=== PATIENT | male | born 1995 | race Hispanic/Latino ===

== ENCOUNTER 2018-08-10 09:52 | Emergency (ER) | payer OTHER | END 2018-08-10 10:43 | disposition home or self-care (01) | LOC: EDH 09:52 | DX: S93.692A Other sprain of left foot, initial encounter (principal); J45.909 Unspecified asthma, uncomplicated; X58.XXXA Exposure to other specified factors, initial encounter; Y93.89 Activity, other specified; Y92.89 Other specified places as the place of occurrence of the external cause; Y99.8 Other external cause status | CPT/HCPCS: 73630 ==

== ENCOUNTER 2020-01-16 10:13 | Emergency (ER) | payer SELFPAY ==
[2020-01-16] MEDS ORDERED: MECLIZINE HCL 25 MG TABLET ONE (11:08)
[2020-01-16 11:26] LABS: EOSINOPHILS % (AUTO) 9.1 % (0.0-8.0); HEMATOCRIT 44.4 % (42-54); LYMPHOCYTES % (AUTO) 25.9 % (21.0-51.0); MEAN CORPUSCULAR HEMOGLOBIN 30.2 pg (27.0-33.0); MEAN CORPUSCULAR HGB CONC 34.9 g/dL (32.0-36.0); MEAN CORPUSCULAR VOLUME 86.5 fL (79-99); MONOCYTES % (AUTO) 8.8 % (3.0-13.0); NEUTROPHILS % (AUTO) 54.9 % (40.0-77.0); PLATELET COUNT (AUTO) 260 K/uL (130-400); RED BLOOD CELL COUNT(AUTO) 5.13 MIL/uL (4.50-6.20); RED CELL DISTRIBUTION WIDTH 12.2 % (11.0-15.5); WHITE BLOOD COUNT (AUTO) 7.1 K/uL (4.8-10.8)
[2020-01-16 11:29] LABS: CREATININE 0.8 mg/dL (0.5-1.5); POTASSIUM 3.7 mmol/L (3.5-5.1)
== END 2020-01-16 12:11 | disposition home or self-care (01) ==
LOC: EDH 10:13
DX: R42 Dizziness and giddiness (principal); J45.909 Unspecified asthma, uncomplicated
CPT/HCPCS: 36415; 80048; 85025; 93005

== ENCOUNTER 2022-08-12 15:35 | Emergency (ER) | payer OTHER ==
[~2022-08-12] VITALS: Ht 180.3 cm; Wt 112.5 kg
[2022-08-12 16:28] LABS: BASOPHILS % (AUTO) 0.8 % (0.0-5.0); EOSINOPHILS % (AUTO) 3.2 % (0.0-8.0); HEMATOCRIT 43.8 % (42-54); LYMPHOCYTES % (AUTO) 17.6 % (21.0-51.0); MEAN CORPUSCULAR HEMOGLOBIN 33.8 pg (27.0-33.0); MEAN CORPUSCULAR HGB CONC 36.1 g/dL (32.0-36.0); MEAN CORPUSCULAR VOLUME 93.8 fL (79-99); MONOCYTES % (AUTO) 11.3 % (3.0-13.0); NEUTROPHILS % (AUTO) 66.6 % (40.0-77.0); PLATELET COUNT (AUTO) 240 K/uL (130-400); RED BLOOD CELL COUNT(AUTO) 4.67 MIL/uL (4.50-6.20); RED CELL DISTRIBUTION WIDTH 14.1 % (11.0-15.5); WHITE BLOOD COUNT (AUTO) 6.6 K/uL (4.8-10.8)
[2022-08-12] MEDS ORDERED: [UNRECOGNIZED DRUG - OTHER] IV ONE (16:30)
[2022-08-12] MEDS ORDERED: LEVOFLOXACIN 750 MG/D5W 150ML BAG IVPB ONE (16:30)
[2022-08-12 17:04] LABS: ALBUMIN 4.3 g/dL (3.5-5.0); CREATININE 1.3 mg/dL (0.5-1.5); CRP QUANTITATIVE 52.7 mg/L (0.00-9.0); POTASSIUM 3.2 mmol/L (3.5-5.1); TOTAL PROTEIN, SERUM 9.7 g/dL (6.0-8.3)
[2022-08-12] MEDS ORDERED: IOHEXOL 350 MG/ML 100ML INFUS..BTL IV ONE (17:40)
[2022-08-12 19:42] VITALS: BP 126/72
[2022-08-12] MEDS ORDERED: CIPR1DRO2 OT (19:54)
[2022-08-12] MEDS ORDERED: CIPR-278 PO (19:54)
== END 2022-08-12 20:08 | disposition home or self-care (01) ==
LOC: EDH 15:35
DX: H60.91 Unspecified otitis externa, right ear (principal); E11.9 Type 2 diabetes mellitus without complications; E86.0 Dehydration
CPT/HCPCS: 99285; 96365; 70487; 80053; 85025; 87040 ×2; 82948; 83605; 86140; 36415; J1956; J7030; Q9967

== ENCOUNTER → 2024-08-24 | Emergency (ER) | payer SELFPAY ==
[~2024-08-24] VITALS: Ht 180.3 cm; Wt 95.3 kg
[~2024-08-24] MED LIST: CIPR-278 PO; CIPR1DRO2 OT; POLYOS OP
[2024-08-24 10:36] VITALS: BP 126/82; PULSE 70; RESP 20; TEMP 98
--- NOTE | 2024-08-24 11:01 | ERN ---
General Chief Complaint: Eye Problems Stated Complaint: LEFT EYE PAIN, REDNESS X 3 DAYS Time Seen by MD: 10:37 History of Present Illness Initial Comments 29-year-old male, history of diabetes, who presents for left eye redness for three days. Patient reports itching and irritation and pain to the left eye. No URI symptoms. No vision changes. No foreign bodies. Allergies: Coded Allergies: No Known Allergies (Unverified Allergy, Unknown, 08/12/22) Home Meds Active Scripts Ciprofloxacin HCl (Ciprofloxacin HCl) 1 Each Droperette, 1 EACH OT every 12 hours for 7 Days, #14 DROP Prov:REZA EDEN TATTOO ARTIST 08/12/22 Ciprofloxacin HCl (Cipro) 500 Mg Tablet, 1 TAB PO BID for 7 Days, #20 TAB 0 Refills Prov:REZA EDEN TATTOO ARTIST 08/12/22 Past Medical History Past Medical History: Diabetes-Type II, High Cholesterol, Hypertension Past Surgical History: None ROS Dictation CONSTITUTIONAL: No chills, no fever, no weakness, no diaphoresis, no malaise. HEAD/FACE: No signs of trauma. EENT: Left eye pain RESPIRATORY: No cough, no orthopnea, no SOB, no stridor, no wheezing. CARDIOVASCULAR: No chest pain, no edema, no palpitations, no syncope. GASTROINTESTINAL/ABDOMINAL: No abdominal pain, no constipation, no diarrhea, no nausea, no vomiting. GENITOURINARY: No abnormal discharge, no dysuria, no frequent urination, no hematuria. No complaints of pain in the genitals. MUSCULOSKELETAL: No back pain, no gout, no joint pain, no joint swelling, no muscle pain, no muscle stiffness, no neck pain. INTEGUMENTARY: No change in color, no change in hair/nails, no dryness, no lesion, no lumps, no rash. NEUROLOGICAL/PSYCH: No anxiety, not depressed, no emotional problem, no headache, no numbness, no pre-existing deficit, no history of seizures, no tremors, no weakness. HEMATOLOGIC/LYMPHATIC: Not anemic, no history of blood clots, no apparent bleeding, no bruising, glands not swollen. All Systems Negative, Except as Noted. Physical Exam Physical Exam Dictation VITAL SIGNS: Reviewed. GENERAL APPEARANCE: Alert, oriented x3, no acute distress HEAD AND FACE: Non-traumatic. EYES: PERRL, pink conjunctivas, eyelid no trauma, anterior chamber clear. Left eye conjunctival injection EARS: Pinnas intact and no signs of trauma or erythema. Ear canals clear and no discharge. TMs no erythema. NOSE: No discharge, no bleeding. OROPHARYNX: Mouth normal, teeth no caries, tongue pink. Pharynx clear, no erythema. Tonsils no exudates, no abscesses noted. Mucous membrane moist. NECK: Supple, non-tender, no thyromegaly, no masses, no JVD, no bruits. BREAST: Deferred. CHEST: No tenderness, no crepitus, no paradoxical movement, no retractions. LUNGS: Clear, well-ventilated, symmetric, no rales, no wheezing, no rhonchi, no stridor, good breath sounds bilaterally. HEART: Regular rate, regular rhythm, no murmur, no gallops. VASCULAR: No peripheral edema. ABDOMEN: Soft, positive bowel sounds, nondistended, no guarding, nontender, no rebound, no masses no hepatomegaly, no splenomegaly, no Davis's sign, no hernias. RECTAL: Deferred. GENITAL: Deferred. NEUROLOGICAL: Normal speech, gross motor function intact, gross sensory function intact. MUSCULOSKELETAL: Neck nontender, full range of motion, back nontender, full range of motion. EXTREMITIES: Nontender, full range of motion. SKIN: Color pink, dry, no turgor, no rash, no lacerations, no abrasions, no contusions. LYMPHATICS: Deferred. MDM CC: Left eye discomfort and redness Historian: Patient Comorbidities: Diabetes Limitations by social determinants of health: None Vital signs are stable Differential diagnosis: Conjunctivitis Symptoms are consistent with conjunctivitis no labs or imaging indicated Patient does not wear contacts We will discharge with Polytrim recommend PCP follow up. ED Course Vital Signs Date Time Temp Pulse Resp B/P (MAP) Pulse Ox O2 Delivery O2 Flow Rate FiO2 08/24/24 10:36 98.1 70 20 126/82 99 Room Air 0 DX & DISP Disposition: Discharge Departure Impression: Primary Impression: Conjunctivitis, left eye Condition: Stable Scripts Polymyxin B Sulfate/Tmp (Polytrim Ophth Soln) 10,000 Unit-1 Mg/Ml Opsol 1 DROP OP TID for 7 Days, #10 ML 0 Refills Prov: BELKIS MOISE DO 12/13/24 Additional Instructions: Your symptoms are consistent with conjunctivitis, otherwise known as pink eye. I have prescribed Polytrim eye drops. Apply this 3 times per day. You can take 1000 mg of Tylenol or 800 mg of ibuprofen for pain. These medications are [id number]. Please follow up with your doctor next week if you continue with symptoms. Return to the emergency department as needed. Referrals: NONE (PCP) BELKIS MOISE DO Aug 24, 2024 11:01
== END ==
LOC: EDH 10:35
DX: H10.9 Unspecified conjunctivitis (principal); E11.9 Type 2 diabetes mellitus without complications; E78.00 Pure hypercholesterolemia, unspecified; I10 Essential (primary) hypertension; Z79.899 Other long term (current) drug therapy
CPT/HCPCS: 99283